=== PATIENT | male | born 1960 | race Caucasian/White ===

== ENCOUNTER 2021-08-13 05:00 | Inpatient (IN) | payer OTHER ==
[2021-08-13] MEDS ORDERED: Albuterol Sulfate 2.5 mg/3 ml Neb ONE (05:15)
[2021-08-13] MEDS ORDERED: Albuterol Sulfate 2.5 mg/0.5 ml Neb ONE (05:16)
[2021-08-13 05:45] LABS: Actual Bicarbonate (HCO3v) 27 mEq/L (22-28); Calcium, Ionized (venous) 1.18 mmol/L (1.16-1.32); Chloride (VBG) 99 mmol/L (98-106); Hemoglobin (Hb) 16.4 g/dL (13.1-17.2); Potassium (VBG) 4.93 mmol/L (3.70-5.30); Puncture Site Other Site; Sodium 138.2 mmol/L (133-146); pH (venous) 7.36 (7.32-7.43)
[2021-08-13 05:51] LABS: #Eosinphils 0.1 10x3/uL (0.0-0.5); #Monocytes 0.8 10x3/uL (0.0-1.1); #Neutrophils 14.7 10x3/uL (1.5-8.4); %Basophils 0.2 % (0.0-2.0); %Eosinophils 0.5 % (0.0-6.0); %Lymphocytes 4.2 % (18.0-47.0); %Monocytes 4.6 % (0.0-10.0); %Neutrophils 88.7 % (40.0-75.0); Hemoglobin 15.6 g/dL (13.5-17.5); Mean Corpuscular Hemoglobin 31.3 pg (27.0-33.0); Mean Corpuscular Volume 97.8 fl (81.2-95.1); Mean Platelet Volume 10.1 fl (7.4-10.4); Platelet Count 244 10x3/uL (150-450); RBC Distribution Width 12.3 % (11.5-14.5); Red Blood Cell (RBC) Count 4.99 10x6/uL (4.32-5.72); White Blood Cell (WBC) Count 16.6 10x3/uL (3.5-10.5)
[2021-08-13 06:01] LABS: ALT (SGPT) 29 U/L (8-55); AST (SGOT) 20 U/L (5-34); Albumin 3.8 g/dL (3.5-5.0); Alkaline Phosphatase 66 U/L (40-110); Anion Gap 15 mmol/L (10-20); BUN (Urea Nitrogen) 19 mg/dL (8.4-25.7); Bilirubin, Total 1.3 mg/dL (0.2-1.2); Calc. Creatinine Clearance 0 mL/min (70-130); Calcium 9.9 mg/dL (7.8-10.44); Carbon Dioxide 27 mmol/L (22-29); Chloride 101 mmol/L (98-107); Globulin 3.5 g/dL (2.4-3.5); Glucose 259 mg/dL (70-105); Potassium 5.1 mmol/L (3.5-5.1); Protein, Total 7.3 g/dL (6.0-8.3); Sodium 138 mmol/L (136-145)
[2021-08-13 06:12] LABS: SARS-CoV-2 NAA Rapid Test Not Detected (NotDetected)
[2021-08-13] MEDS ORDERED: cefTRIAXone\\ROCEPHIN 2 GM VIAL ONE (06:20)
[2021-08-13] MEDS ORDERED: Azithromycin 250 MG TAB ONE (06:20)
[2021-08-13 06:24] LABS: CKMB 0.8 ng/mL (0-6.6)
[2021-08-13] MEDS ORDERED: Dextrose 5% in Water 1,000 ML IV PRN (07:21)
[2021-08-13] MEDS ORDERED: Dextrose 50% Abboject 50 ML SYRINGE SLOW IVP PRN (07:21)
[2021-08-13] MEDS ORDERED: Acetaminophen 325 MG TAB PO PRN (07:24)
[2021-08-13] MEDS ORDERED: Senokot S 8.6-50 MG TAB PO PRN (07:24)
[2021-08-13 09:39] LABS: Troponin I 0.023 ng/mL (< 0.028)
[2021-08-13] MEDS ORDERED: Benzonatate 100 MG CAP PO PRN (09:51)
[2021-08-13 10:20] VITALS: BMI 29.4
[2021-08-13] MEDS ORDERED: Famotidine 20 MG TAB PO SCH (11:00)
[2021-08-13 11:21] LABS: Bilirubin Neg (Negative); Blood, Urine Negative (Negative); Clarity Clear (Clear); Glucose, Urine (Dipstick) >=1000 mg/dL (Negative); Ketone, Urine 50 mg/dL (Negative); Leukocyte Negative (Negative); Nitrite Negative (Negative); Protein, Urine (Dipstick) 15 mg/dl (Neg-Trace); Specific Gravity, Urine 1.015 (1.002-1.036)
[2021-08-13 11:25] LABS: Urine Culture Reflex No No
[2021-08-13 11:28] LABS: Bacteria/HPF Rare-Few HPF (None Seen); RBC/HPF 0-3 HPF (0-3); Squamous Epithelial 0-3 HPF (0-3); WBC/HPF 0-3 HPF (0-3)
[2021-08-13 11:39] LABS: Legionella Urinary Ag Negative (Negative); Strep pneumo Urine Ag NEGATIVE (NEGATIVE)
[2021-08-13] MEDS: Enoxaparin Sodium 40 MG/0.4 ML SYRINGE SC SCH (12:46)
[2021-08-13] MEDS: HumaLOG 300 UNITS/3 ML VIAL SC PRN ×3 (16:18→22:13)
[2021-08-13] MEDS: HYDROcodone/Acetaminophen 7.5/325 mg Tablet PO PRN ×2 (16:24→22:54)
[2021-08-13] MEDS ORDERED: Arformoterol 15 MCG/2 ML NEB NEB SCH (18:30)
[2021-08-13] MEDS: Mometasone/Formoterol 200/5 60 PUFF INH SCH (19:00)
[2021-08-13] MEDS ORDERED: Atorvastatin Calcium 20 MG TAB PO SCH (21:00)
[2021-08-13] MEDS: Loratadine 10 MG TAB PO SCH (21:20)
[2021-08-13] MEDS: guaiFENesin ER 600 MG TAB PO SCH (21:20)
[2021-08-13] MEDS: Aspirin 325 MG TAB PO SCH (21:21)
[2021-08-13] MEDS: Dronedarone HCl 400 MG TAB PO SCH (21:21)
[2021-08-13] MEDS: Lantus 1000 UNITS/10 ML VIAL SC SCH (21:22)
[2021-08-13] MEDS: Famotidine 20 MG TAB PO SCH (21:22)
[2021-08-13] MEDS: Cefepime 2 GM in Sodium Chloride 0.9% 100 ML IVPB SCH (21:52)
[2021-08-13] MEDS: Sodium Chloride 0.65% Nasal 44 ML BOT EA NARE PRN (22:12)
[2021-08-13] MEDS: Guaifenesin DM 100-10/5 ML UDCUP PO PRN (22:13)
[2021-08-14 05:00] LABS: #Monocytes 0.7 10x3/uL (0.0-1.1); #Neutrophils 11.7 10x3/uL (1.5-8.4); %Basophils 0.1 % (0.0-2.0); %Lymphocytes 6.4 % (18.0-47.0); %Monocytes 5.5 % (0.0-10.0); %Neutrophils 87.4 % (40.0-75.0); Hemoglobin 13.8 g/dL (13.5-17.5); Mean Corpuscular HGB CONC 32.8 g/dL (32.0-36.0); Mean Corpuscular Hemoglobin 31.2 pg (27.0-33.0); Mean Corpuscular Volume 95.2 fl (81.2-95.1); Mean Platelet Volume 10.1 fl (7.4-10.4); Platelet Count 218 10x3/uL (150-450); RBC Distribution Width 12.2 % (11.5-14.5); Red Blood Cell (RBC) Count 4.42 10x6/uL (4.32-5.72); White Blood Cell (WBC) Count 13.4 10x3/uL (3.5-10.5)
[2021-08-14 05:14] LABS: Anion Gap 11 mmol/L (10-20); BUN (Urea Nitrogen) 26 mg/dL (8.4-25.7); Calc. Creatinine Clearance 133 mL/min (70-130); Calcium 9.4 mg/dL (7.8-10.44); Carbon Dioxide 30 mmol/L (22-29); Chloride 97 mmol/L (98-107); Glucose 303 mg/dL (70-105); Potassium 4.4 mmol/L (3.5-5.1); Sodium 134 mmol/L (136-145)
[2021-08-14] MEDS: HYDROcodone/Acetaminophen 7.5/325 mg Tablet PO PRN ×4 (05:35→22:53)
[2021-08-14] MEDS: Azithromycin 500 MG in Sodium Chloride 0.9% 250 ML 250 ML IVPB SCH (05:41)
[2021-08-14] MEDS ORDERED: cefTRIAXone\\ROCEPHIN 1 GM in Sodium Chloride 0.9% 100 ML IVPB SCH (06:30)
[2021-08-14] MEDS: HumaLOG 300 UNITS/3 ML VIAL SC PRN ×4 (06:46→21:49)
[2021-08-14] MEDS: Mometasone/Formoterol 200/5 60 PUFF INH SCH (07:20)
[2021-08-14] MEDS: Enoxaparin Sodium 40 MG/0.4 ML SYRINGE SC SCH (08:51)
[2021-08-14] MEDS: Famotidine 20 MG TAB PO SCH ×2 (08:52→21:40)
[2021-08-14] MEDS: Atorvastatin Calcium 20 MG TAB PO SCH (08:52)
[2021-08-14] MEDS: Cefepime 2 GM in Sodium Chloride 0.9% 100 ML IVPB SCH ×2 (08:52→21:41)
[2021-08-14] MEDS: Dronedarone HCl 400 MG TAB PO SCH ×2 (08:52→21:39)
[2021-08-14] MEDS: Guaifenesin DM 100-10/5 ML UDCUP PO PRN ×2 (08:52→22:53)
[2021-08-14] MEDS: Montelukast Sodium 10 mg Tablet PO SCH (08:52)
[2021-08-14] MEDS: guaiFENesin ER 600 MG TAB PO SCH ×2 (08:55→21:39)
[2021-08-14] MEDS ORDERED: Loratadine 10 MG TAB PO SCH (09:00)
[2021-08-14] MEDS ORDERED: Aspirin 325 MG TAB PO SCH (09:00)
[2021-08-14] MEDS: TRELEGY ELLIPTA INH SCH (16:54)
[2021-08-14] MEDS: Loratadine 10 MG TAB PO SCH (21:40)
[2021-08-14] MEDS: Aspirin 325 MG TAB PO SCH (21:40)
[2021-08-14] MEDS: Sodium Chloride 0.65% Nasal 44 ML BOT EA NARE PRN (21:41)
[2021-08-14] MEDS: Lantus 1000 UNITS/10 ML VIAL SC SCH (21:42)
[2021-08-15] MEDS: Mometasone/Formoterol 200/5 60 PUFF INH SCH ×3 (04:50→20:00)
[2021-08-15] MEDS: Azithromycin 500 MG in Sodium Chloride 0.9% 250 ML 250 ML IVPB SCH (05:09)
[2021-08-15] MEDS: HYDROcodone/Acetaminophen 7.5/325 mg Tablet PO PRN ×4 (05:10→22:25)
[2021-08-15 05:37] LABS: #Eosinphils 0.1 10x3/uL (0.0-0.5); #Monocytes 1.1 10x3/uL (0.0-1.1); #Neutrophils 10.3 10x3/uL (1.5-8.4); %Basophils 0.2 % (0.0-2.0); %Eosinophils 0.9 % (0.0-6.0); %Lymphocytes 8.5 % (18.0-47.0); %Monocytes 8.4 % (0.0-10.0); %Neutrophils 81.4 % (40.0-75.0); Hemoglobin 13.7 g/dL (13.5-17.5); Mean Corpuscular HGB CONC 32.1 g/dL (32.0-36.0); Mean Corpuscular Hemoglobin 31.2 pg (27.0-33.0); Mean Corpuscular Volume 97.3 fl (81.2-95.1); Platelet Count 227 10x3/uL (150-450); RBC Distribution Width 12.1 % (11.5-14.5); Red Blood Cell (RBC) Count 4.39 10x6/uL (4.32-5.72); White Blood Cell (WBC) Count 12.7 10x3/uL (3.5-10.5)
[2021-08-15 05:39] LABS: Anion Gap 14 mmol/L (10-20); BUN (Urea Nitrogen) 16 mg/dL (8.4-25.7); Calc. Creatinine Clearance 119 mL/min (70-130); Calcium 9.3 mg/dL (7.8-10.44); Carbon Dioxide 31 mmol/L (22-29); Chloride 95 mmol/L (98-107); Glucose 415 mg/dL (70-105); Potassium 4.5 mmol/L (3.5-5.1); Sodium 135 mmol/L (136-145)
[2021-08-15] MEDS: TRELEGY ELLIPTA INH SCH (07:10)
[2021-08-15] MEDS: HumaLOG 300 UNITS/3 ML VIAL SC PRN ×3 (07:44→21:29)
[2021-08-15] MEDS: Dronedarone HCl 400 MG TAB PO SCH ×2 (08:33→21:20)
[2021-08-15] MEDS: Enoxaparin Sodium 40 MG/0.4 ML SYRINGE SC SCH (08:33)
[2021-08-15] MEDS: Guaifenesin DM 100-10/5 ML UDCUP PO PRN ×2 (08:33→22:30)
[2021-08-15] MEDS: Famotidine 20 MG TAB PO SCH ×2 (08:33→21:20)
[2021-08-15] MEDS: Lantus 1000 UNITS/10 ML VIAL SC SCH ×2 (08:34→21:26)
[2021-08-15] MEDS: Montelukast Sodium 10 mg Tablet PO SCH (08:34)
[2021-08-15] MEDS: Atorvastatin Calcium 20 MG TAB PO SCH (08:34)
[2021-08-15] MEDS: Cefepime 2 GM in Sodium Chloride 0.9% 100 ML IVPB SCH ×2 (08:34→21:22)
[2021-08-15] MEDS: guaiFENesin ER 600 MG TAB PO SCH ×2 (08:34→21:36)
[2021-08-15] MEDS: Albuterol Sulfate 2.5 mg/3 ml Neb NEB PRN (17:19)
[2021-08-15] MEDS: Loratadine 10 MG TAB PO SCH (21:20)
[2021-08-15] MEDS: Aspirin 325 MG TAB PO SCH (21:20)
[2021-08-16 04:33] LABS: #Eosinphils 0.3 10x3/uL (0.0-0.5); #Monocytes 0.9 10x3/uL (0.0-1.1); #Neutrophils 7.1 10x3/uL (1.5-8.4); %Basophils 0.3 % (0.0-2.0); %Eosinophils 2.6 % (0.0-6.0); %Lymphocytes 12.8 % (18.0-47.0); %Monocytes 9.8 % (0.0-10.0); %Neutrophils 73.7 % (40.0-75.0); Mean Corpuscular HGB CONC 32.3 g/dL (32.0-36.0); Mean Corpuscular Hemoglobin 31.2 pg (27.0-33.0); Mean Corpuscular Volume 96.4 fl (81.2-95.1); Mean Platelet Volume 10.5 fl (7.4-10.4); Platelet Count 247 10x3/uL (150-450); RBC Distribution Width 12.3 % (11.5-14.5); Red Blood Cell (RBC) Count 4.49 10x6/uL (4.32-5.72); White Blood Cell (WBC) Count 9.6 10x3/uL (3.5-10.5)
[2021-08-16 04:48] LABS: Anion Gap 11 mmol/L (10-20); BUN (Urea Nitrogen) 13 mg/dL (8.4-25.7); Calc. Creatinine Clearance 146 mL/min (70-130); Calcium 9.2 mg/dL (7.8-10.44); Carbon Dioxide 34 mmol/L (22-29); Chloride 97 mmol/L (98-107); Glucose 166 mg/dL (70-105); Potassium 4.4 mmol/L (3.5-5.1); Sodium 138 mmol/L (136-145)
[2021-08-16] MEDS ORDERED: Sodium Chloride 0.9% 250 ML 250 ML ONE (05:01)
[2021-08-16] MEDS: HYDROcodone/Acetaminophen 7.5/325 mg Tablet PO PRN ×4 (05:03→23:10)
[2021-08-16] MEDS: Azithromycin 500 MG in Sodium Chloride 0.9% 250 ML 250 ML IVPB SCH (05:04)
[2021-08-16] MEDS: HumaLOG 300 UNITS/3 ML VIAL SC PRN ×2 (05:46→11:52)
[2021-08-16] MEDS: Mometasone/Formoterol 200/5 60 PUFF INH SCH ×2 (07:18→21:04)
[2021-08-16] MEDS: Enoxaparin Sodium 40 MG/0.4 ML SYRINGE SC SCH (09:48)
[2021-08-16] MEDS: Atorvastatin Calcium 20 MG TAB PO SCH (09:48)
[2021-08-16] MEDS: Dronedarone HCl 400 MG TAB PO SCH ×2 (09:50→21:22)
[2021-08-16] MEDS: Montelukast Sodium 10 mg Tablet PO SCH (09:50)
[2021-08-16] MEDS: Famotidine 20 MG TAB PO SCH ×2 (09:50→21:22)
[2021-08-16] MEDS: guaiFENesin ER 600 MG TAB PO SCH ×2 (09:51→21:23)
[2021-08-16] MEDS: Cefepime 2 GM in Sodium Chloride 0.9% 100 ML IVPB SCH ×2 (09:57→21:24)
[2021-08-16] MEDS: Lantus 1000 UNITS/10 ML VIAL SC SCH ×2 (09:59→21:38)
[2021-08-16] MEDS: Guaifenesin DM 100-10/5 ML UDCUP PO PRN (10:19)
[2021-08-16] MEDS: Albuterol Sulfate 2.5 mg/3 ml Neb NEB PRN (13:03)
[2021-08-16] MEDS: TRELEGY ELLIPTA INH SCH (18:41)
[2021-08-16] MEDS: Aspirin 325 MG TAB PO SCH (21:21)
[2021-08-16] MEDS: Loratadine 10 MG TAB PO SCH (21:22)
[2021-08-17] MEDS: Guaifenesin DM 100-10/5 ML UDCUP PO PRN ×2 (00:07→21:42)
[2021-08-17 05:22] LABS: #Eosinphils 0.3 10x3/uL (0.0-0.5); #Neutrophils 6.1 10x3/uL (1.5-8.4); %Basophils 0.3 % (0.0-2.0); %Eosinophils 3.4 % (0.0-6.0); %Lymphocytes 14.3 % (18.0-47.0); %Monocytes 11.3 % (0.0-10.0); %Neutrophils 70.1 % (40.0-75.0); Hemoglobin 13.5 g/dL (13.5-17.5); Mean Corpuscular HGB CONC 31.9 g/dL (32.0-36.0); Mean Corpuscular Volume 97.2 fl (81.2-95.1); Mean Platelet Volume 10.4 fl (7.4-10.4); Platelet Count 258 10x3/uL (150-450); RBC Distribution Width 12.3 % (11.5-14.5); Red Blood Cell (RBC) Count 4.35 10x6/uL (4.32-5.72); White Blood Cell (WBC) Count 8.7 10x3/uL (3.5-10.5)
[2021-08-17 05:40] LABS: Anion Gap 11 mmol/L (10-20); BUN (Urea Nitrogen) 10 mg/dL (8.4-25.7); Calc. Creatinine Clearance 150 mL/min (70-130); Carbon Dioxide 36 mmol/L (22-29); Chloride 97 mmol/L (98-107); Glucose 189 mg/dL (70-105); Sodium 139 mmol/L (136-145)
[2021-08-17 05:42] LABS: Potassium 4.6 mmol/L (3.5-5.1)
[2021-08-17] MEDS: Mometasone/Formoterol 200/5 60 PUFF INH SCH (07:59)
[2021-08-17] MEDS: HYDROcodone/Acetaminophen 7.5/325 mg Tablet PO PRN ×3 (08:00→21:43)
[2021-08-17] MEDS: Famotidine 20 MG TAB PO SCH ×2 (09:55→21:42)
[2021-08-17] MEDS: Enoxaparin Sodium 40 MG/0.4 ML SYRINGE SC SCH (09:55)
[2021-08-17] MEDS: Cefepime 2 GM in Sodium Chloride 0.9% 100 ML IVPB SCH ×2 (09:56→21:42)
[2021-08-17] MEDS: Montelukast Sodium 10 mg Tablet PO SCH (09:56)
[2021-08-17] MEDS: Atorvastatin Calcium 20 MG TAB PO SCH (09:56)
[2021-08-17] MEDS: Dronedarone HCl 400 MG TAB PO SCH ×2 (09:56→21:42)
[2021-08-17] MEDS: guaiFENesin ER 600 MG TAB PO SCH ×2 (10:00→21:42)
[2021-08-17] MEDS: Lantus 1000 UNITS/10 ML VIAL SC SCH ×2 (10:03→21:53)
[2021-08-17] MEDS: HumaLOG 300 UNITS/3 ML VIAL SC PRN (12:43)
[2021-08-17] MEDS ORDERED: PROLASTIN-C IVPB SCH (14:00)
[2021-08-17] MEDS ORDERED: PROLASTIN-C IV SCH (15:00)
[2021-08-17] MEDS ORDERED: predniSONE 20 MG TAB PO SCH (18:00)
[2021-08-17] MEDS: TRELEGY ELLIPTA INH SCH (18:55)
[2021-08-17] MEDS: Aspirin 325 MG TAB PO SCH (21:41)
[2021-08-17] MEDS: Loratadine 10 MG TAB PO SCH (21:42)
[2021-08-18 04:14] LABS: #Monocytes 0.2 10x3/uL (0.0-1.1); #Neutrophils 10.6 10x3/uL (1.5-8.4); %Basophils 0.2 % (0.0-2.0); %Eosinophils 0.3 % (0.0-6.0); %Lymphocytes 4.4 % (18.0-47.0); %Monocytes 1.4 % (0.0-10.0); %Neutrophils 92.8 % (40.0-75.0); Hemoglobin 14.3 g/dL (13.5-17.5); Mean Corpuscular HGB CONC 31.2 g/dL (32.0-36.0); Mean Corpuscular Hemoglobin 30.6 pg (27.0-33.0); Mean Corpuscular Volume 98.3 fl (81.2-95.1); Mean Platelet Volume 10.3 fl (7.4-10.4); Platelet Count 264 10x3/uL (150-450); RBC Distribution Width 12.2 % (11.5-14.5); Red Blood Cell (RBC) Count 4.67 10x6/uL (4.32-5.72); White Blood Cell (WBC) Count 11.4 10x3/uL (3.5-10.5)
[2021-08-18 04:24] LABS: ALT (SGPT) 47 U/L (8-55); AST (SGOT) 33 U/L (5-34); Albumin 3.7 g/dL (3.5-5.0); Alkaline Phosphatase 67 U/L (40-110); Anion Gap 13 mmol/L (10-20); BUN (Urea Nitrogen) 15 mg/dL (8.4-25.7); Bilirubin, Total 0.5 mg/dL (0.2-1.2); Calc. Creatinine Clearance 123 mL/min (70-130); Calcium 9.8 mg/dL (7.8-10.44); Carbon Dioxide 34 mmol/L (22-29); Chloride 96 mmol/L (98-107); Globulin 3.4 g/dL (2.4-3.5); Glucose 335 mg/dL (70-105); Potassium 5.2 mmol/L (3.5-5.1); Protein, Total 7.1 g/dL (6.0-8.3); Sodium 138 mmol/L (136-145)
[2021-08-18] MEDS: HYDROcodone/Acetaminophen 7.5/325 mg Tablet PO PRN ×4 (05:44→22:58)
[2021-08-18] MEDS: HumaLOG 300 UNITS/3 ML VIAL SC PRN ×4 (05:49→21:58)
[2021-08-18] MEDS: predniSONE 20 MG TAB PO SCH (08:55)
[2021-08-18] MEDS: Enoxaparin Sodium 40 MG/0.4 ML SYRINGE SC SCH (08:56)
[2021-08-18] MEDS: Cefepime 2 GM in Sodium Chloride 0.9% 100 ML IVPB SCH ×2 (08:57→21:37)
[2021-08-18] MEDS: predniSONE 10 MG TAB PO SCH (08:57)
[2021-08-18] MEDS: Famotidine 20 MG TAB PO SCH ×2 (08:57→21:36)
[2021-08-18] MEDS: Atorvastatin Calcium 20 MG TAB PO SCH (08:57)
[2021-08-18] MEDS: Montelukast Sodium 10 mg Tablet PO SCH (08:57)
[2021-08-18] MEDS: Dronedarone HCl 400 MG TAB PO SCH ×2 (08:57→21:37)
[2021-08-18] MEDS: guaiFENesin ER 600 MG TAB PO SCH ×2 (08:58→21:38)
[2021-08-18] MEDS: Lantus 1000 UNITS/10 ML VIAL SC SCH (08:59)
[2021-08-18] MEDS: TRELEGY ELLIPTA INH SCH (19:25)
[2021-08-18] MEDS ORDERED: Lantus 1000 UNITS/10 ML VIAL SC SCH (21:00)
[2021-08-18] MEDS: Aspirin 325 MG TAB PO SCH (21:36)
[2021-08-18] MEDS: Loratadine 10 MG TAB PO SCH (21:37)
[2021-08-18] MEDS: Guaifenesin DM 100-10/5 ML UDCUP PO PRN (21:38)
[2021-08-19 03:57] LABS: #Eosinphils 0.2 10x3/uL (0.0-0.5); #Monocytes 1.1 10x3/uL (0.0-1.1); #Neutrophils 8.1 10x3/uL (1.5-8.4); %Basophils 0.2 % (0.0-2.0); %Eosinophils 1.4 % (0.0-6.0); %Lymphocytes 10.3 % (18.0-47.0); %Monocytes 10.5 % (0.0-10.0); %Neutrophils 77.1 % (40.0-75.0); Hemoglobin 12.5 g/dL (13.5-17.5); Mean Corpuscular HGB CONC 31.4 g/dL (32.0-36.0); Mean Corpuscular Hemoglobin 31.1 pg (27.0-33.0); Mean Platelet Volume 10.6 fl (7.4-10.4); Platelet Count 269 10x3/uL (150-450); RBC Distribution Width 12.1 % (11.5-14.5); Red Blood Cell (RBC) Count 4.02 10x6/uL (4.32-5.72); White Blood Cell (WBC) Count 10.5 10x3/uL (3.5-10.5)
[2021-08-19 04:19] LABS: ALT (SGPT) 40 U/L (8-55); AST (SGOT) 28 U/L (5-34); Albumin 3.2 g/dL (3.5-5.0); Alkaline Phosphatase 55 U/L (40-110); Anion Gap 10 mmol/L (10-20); BUN (Urea Nitrogen) 17 mg/dL (8.4-25.7); Bilirubin, Total 0.3 mg/dL (0.2-1.2); Calc. Creatinine Clearance 146 mL/min (70-130); Calcium 9.2 mg/dL (7.8-10.44); Carbon Dioxide 35 mmol/L (22-29); Chloride 99 mmol/L (98-107); Globulin 2.7 g/dL (2.4-3.5); Glucose 229 mg/dL (70-105); Potassium 4.1 mmol/L (3.5-5.1); Protein, Total 5.9 g/dL (6.0-8.3); Sodium 140 mmol/L (136-145)
[2021-08-19] MEDS: HYDROcodone/Acetaminophen 7.5/325 mg Tablet PO PRN ×4 (04:51→23:14)
[2021-08-19] MEDS: HumaLOG 300 UNITS/3 ML VIAL SC PRN ×3 (07:33→21:06)
[2021-08-19] MEDS: predniSONE 20 MG TAB PO SCH (09:30)
[2021-08-19] MEDS: Montelukast Sodium 10 mg Tablet PO SCH (09:30)
[2021-08-19] MEDS: Dronedarone HCl 400 MG TAB PO SCH ×2 (09:30→20:50)
[2021-08-19] MEDS: Atorvastatin Calcium 20 MG TAB PO SCH (09:30)
[2021-08-19] MEDS: Enoxaparin Sodium 40 MG/0.4 ML SYRINGE SC SCH (09:31)
[2021-08-19] MEDS: Famotidine 20 MG TAB PO SCH ×2 (09:31→20:51)
[2021-08-19] MEDS: predniSONE 10 MG TAB PO SCH (09:33)
[2021-08-19] MEDS: guaiFENesin ER 600 MG TAB PO SCH ×3 (09:40→20:58)
[2021-08-19] MEDS: Polyethylene Glycol 3350 17 GM Packet PO SCH (09:41)
[2021-08-19] MEDS: Guaifenesin DM 100-10/5 ML UDCUP PO PRN ×2 (09:51→20:52)
[2021-08-19] MEDS: Cefepime 2 GM in Sodium Chloride 0.9% 100 ML IVPB SCH ×2 (11:06→20:49)
[2021-08-19] MEDS: TRELEGY ELLIPTA INH SCH (18:40)
[2021-08-19] MEDS: Aspirin 325 MG TAB PO SCH (20:51)
[2021-08-19] MEDS: Loratadine 10 MG TAB PO SCH (20:52)
[2021-08-19] MEDS: Lantus 1000 UNITS/10 ML VIAL SC SCH (21:05)
[2021-08-20] MEDS: HYDROcodone/Acetaminophen 7.5/325 mg Tablet PO PRN ×4 (04:49→23:12)
[2021-08-20] MEDS: HumaLOG 300 UNITS/3 ML VIAL SC PRN ×3 (07:32→21:11)
[2021-08-20] MEDS ORDERED: Guaifenesin DM 100-10/5 ML UDCUP ONE (10:14)
[2021-08-20] MEDS: Cefepime 2 GM in Sodium Chloride 0.9% 100 ML IVPB SCH ×2 (10:29→20:11)
[2021-08-20] MEDS: Dronedarone HCl 400 MG TAB PO SCH ×2 (10:30→20:10)
[2021-08-20] MEDS: Enoxaparin Sodium 40 MG/0.4 ML SYRINGE SC SCH (10:30)
[2021-08-20] MEDS: Famotidine 20 MG TAB PO SCH ×2 (10:30→20:10)
[2021-08-20] MEDS: predniSONE 20 MG TAB PO SCH (10:31)
[2021-08-20] MEDS: Atorvastatin Calcium 20 MG TAB PO SCH (10:32)
[2021-08-20] MEDS: predniSONE 10 MG TAB PO SCH (10:33)
[2021-08-20] MEDS: Polyethylene Glycol 3350 17 GM Packet PO SCH (10:33)
[2021-08-20] MEDS: guaiFENesin ER 600 MG TAB PO SCH ×2 (10:33→20:13)
[2021-08-20] MEDS: Montelukast Sodium 10 mg Tablet PO SCH (10:33)
[2021-08-20] MEDS ORDERED: Furosemide 20 MG/2 ML VIAL SLOW IVP SCH (14:45)
[2021-08-20] MEDS: TRELEGY ELLIPTA INH SCH (18:46)
[2021-08-20] MEDS: Loratadine 10 MG TAB PO SCH (20:10)
[2021-08-20] MEDS: Aspirin 325 MG TAB PO SCH (20:10)
[2021-08-20] MEDS: Lantus 1000 UNITS/10 ML VIAL SC SCH (21:10)
[2021-08-20] MEDS: Guaifenesin DM 100-10/5 ML UDCUP PO PRN (21:11)
[2021-08-21] MEDS: Guaifenesin DM 100-10/5 ML UDCUP PO PRN ×3 (01:39→21:20)
[2021-08-21] MEDS: HYDROcodone/Acetaminophen 7.5/325 mg Tablet PO PRN ×4 (05:18→22:53)
[2021-08-21] MEDS: HumaLOG 300 UNITS/3 ML VIAL SC PRN ×3 (06:15→21:26)
[2021-08-21] MEDS ORDERED: Lantus 1000 UNITS/10 ML VIAL SC SCH (08:15)
[2021-08-21 08:41] LABS: Anion Gap 12 mmol/L (10-20); BUN (Urea Nitrogen) 13 mg/dL (8.4-25.7); Calc. Creatinine Clearance 142 mL/min (70-130); Calcium 9.6 mg/dL (7.8-10.44); Carbon Dioxide 35 mmol/L (22-29); Chloride 96 mmol/L (98-107); Glucose 107 mg/dL (70-105); Sodium 139 mmol/L (136-145)
[2021-08-21] MEDS: Cefepime 2 GM in Sodium Chloride 0.9% 100 ML IVPB SCH ×2 (10:02→21:21)
[2021-08-21] MEDS: Famotidine 20 MG TAB PO SCH ×2 (10:02→21:18)
[2021-08-21] MEDS: predniSONE 20 MG TAB PO SCH (10:03)
[2021-08-21] MEDS: Dronedarone HCl 400 MG TAB PO SCH ×2 (10:03→21:18)
[2021-08-21] MEDS: Atorvastatin Calcium 20 MG TAB PO SCH (10:03)
[2021-08-21] MEDS: Montelukast Sodium 10 mg Tablet PO SCH (10:04)
[2021-08-21] MEDS: Polyethylene Glycol 3350 17 GM Packet PO SCH (10:04)
[2021-08-21] MEDS: predniSONE 10 MG TAB PO SCH (10:04)
[2021-08-21] MEDS: Enoxaparin Sodium 40 MG/0.4 ML SYRINGE SC SCH (10:05)
[2021-08-21] MEDS: guaiFENesin ER 600 MG TAB PO SCH ×2 (10:05→21:22)
[2021-08-21] MEDS ORDERED: Furosemide 20 MG/2 ML VIAL SLOW IVP SCH (13:15)
[2021-08-21] MEDS: TRELEGY ELLIPTA INH SCH (18:46)
[2021-08-21] MEDS: Aspirin 325 MG TAB PO SCH (21:18)
[2021-08-21] MEDS: Loratadine 10 MG TAB PO SCH (21:18)
[2021-08-21] MEDS: Lantus 1000 UNITS/10 ML VIAL SC SCH (21:22)
[2021-08-21 21:43] LABS: SARS-CoV-2 PCR by NAA Not Detected (NotDetected)
[2021-08-22] MEDS: HYDROcodone/Acetaminophen 7.5/325 mg Tablet PO PRN ×2 (04:54→11:09)
[2021-08-22] MEDS: Montelukast Sodium 10 mg Tablet PO SCH (08:49)
[2021-08-22] MEDS: Famotidine 20 MG TAB PO SCH (08:49)
[2021-08-22] MEDS: Dronedarone HCl 400 MG TAB PO SCH (08:49)
[2021-08-22] MEDS: Atorvastatin Calcium 20 MG TAB PO SCH (08:49)
[2021-08-22] MEDS: Cefepime 2 GM in Sodium Chloride 0.9% 100 ML IVPB SCH (08:50)
[2021-08-22] MEDS: Enoxaparin Sodium 40 MG/0.4 ML SYRINGE SC SCH (08:50)
[2021-08-22] MEDS: guaiFENesin ER 600 MG TAB PO SCH (08:50)
[2021-08-22] MEDS: Polyethylene Glycol 3350 17 GM Packet PO SCH (08:51)
[2021-08-22] MEDS: predniSONE 20 MG TAB PO SCH (08:54)
[2021-08-22 12:02] VITALS: TEMP 98
[2021-08-22 12:34] VITALS: BP 138/70
[2021-08-22 20:08] LABS: CMV DNA-PCR Test Negative (Negative)
== END 2021-08-22 14:18 | disposition home or self-care (01) | DRG 871 ==
LOC: CSHERS 05:00 → SUATTDRO 05:00 → CSHTELE 09:10 → CSHIMCU 08-16 19:22 → CSHTELE 08-16 19:24
PROVIDERS: ADMIT Family Medicine; ATTEND Internal Medicine
DX: A41.52 Sepsis due to Pseudomonas (principal); J15.1 Pneumonia due to Pseudomonas; J96.21 Acute and chronic respiratory failure with hypoxia; J44.1 Chronic obstructive pulmonary disease with (acute) exacerbation; Z20.822 Contact with and (suspected) exposure to COVID-19; E88.01 Alpha-1-antitrypsin deficiency; G47.33 Obstructive sleep apnea (adult) (pediatric); I48.0 Paroxysmal atrial fibrillation; E11.9 Type 2 diabetes mellitus without complications; E87.5 Hyperkalemia; I10 Essential (primary) hypertension; E78.5 Hyperlipidemia, unspecified; Z99.81 Dependence on supplemental oxygen; Z79.4 Long term (current) use of insulin; Z88.6 Allergy status to analgesic agent; Z88.1 Allergy status to other antibiotic agents; Z79.82 Long term (current) use of aspirin; Z79.891 Long term (current) use of opiate analgesic; Z79.52 Long term (current) use of systemic steroids; Z79.899 Other long term (current) drug therapy; Z90.49 Acquired absence of other specified parts of digestive tract
CPT/HCPCS: 36415; 36416; 71045; 71260; 80048; 80053; 81001; 82553; 82805; 83605; 83735; 83880; 84145; 84484; 85025; 87040; 87070; 87077; 87081; 87116; 87186; 87205; 87206; 87385; 87449; 87497; 87899; 93005; 94640; 94660; 94667; 94668; 94760; 94762; 96365; J0456; J0692; J0696; J1650; J1815; J1940; J3490; J7050; J7512; J7611; J7620; U0002; U0003; U0005